=== PATIENT | male | born 1960 | race Caucasian/White ===

== ENCOUNTER 2018-07-17 21:28 | Emergency (ER) | payer OTHER ==
[~2018-07-17 21:28] MED LIST: BACTRIM DS TAB1 EACH PO; BENADRYL25 MG PO; FLEXERIL PO; MEDROLDOSEPACK PO; NOHOMEMEDICATIONS; NORCO 5-325 TA1 EACH PO; TRIAMCINOLONE A80 GM TOP; VALIUM5 MG PO
== END 2018-07-17 22:45 ==
LOC: M.ERS 21:28
DX: Z02.89 Encounter for other administrative examinations (principal)